=== PATIENT | female | born 1960 | race Caucasian/White ===

== ENCOUNTER 2016-08-28 09:05 | Emergency (ER) | payer OTHER ==
[~2016-08-28 09:05] MED LIST: ABILIFY 5MG5 MG PO; ABILIFY10 M1 PO; AUGMENTIN 875 M1 TAB PO; BUPROPION HCL100 M2 PO; BUTALB-ACETAMI1 EACH PO; CHLORDIAZEPOXID25 M3 PO; DOCUSATE SODIU100 MG PO; DULCOLAX10 MG PR; ESTRADIOL1 M1 PO; FIORICET 50-301 EACH PO; FLUOCINONIDE15 G2 TOP; FLUOXETINE HCL20 M2 PO; FLUOXETINE HYDR20 MG; FLUOXETINE HYDR20 MG PO; FLUOXETINE40 MG PO; FOLIC ACID1 M1 PO; FOLIC ACID1 MG PO; GABAPENTIN300 MG PO; GABAPENTIN600 M1 PO; HYDROXYZINE PAM50 MG; HYDROXYZINE PAM50 MG PO; IBUPROFEN600 MG PO; KEFLEX500 M1 PO; LAMICTAL100 M2 PO; LAMOTRIGINE150 M1 PO; LITHIUM CARBON300 M2; LITHIUM CARBON300 M2 PO; MEDROL4 M2 PO; MIRALAX17 GM PO; MIRTAZAPINE15 MG; MIRTAZAPINE15 MG PO; MOBIC15 M1 PO; MULTIVITAMIN1 TAB PO; NALTREXONE HCL50 MG PO; NAPROSYN500 M1 PO; NEXIUM 40MG40 MG PO; NICODERM C21 MG/24 H TOP; NORCO 5-325 TA1 EACH PO; NORTRIPTYLINE H25 M2 PO; OMEPRAZOLE-BIC1 EAC1 PO; PANTOPRAZOLE SO40 M1 PO; PERCOCET 5-3251 EACH PO; SENSIPAR30 MG PO; Senokot S PO; TOPIRAMATE25 MG PO; Theragran Vitamins PO; VESICARE 5MG5 MG PO; VITAMIN B1100 MG PO; VITAMIN D2000 I1 PO; ZOFRAN ODT4 M1 SL; ZOFRAN4 M2 PO; ZOFRAN4 MG PO; ZOVIRAX5 GM TOP; [UNRECOGNIZED DRUG - OTHER] PO
[2016-08-28 09:07] VITALS: BP 124/83
--- NOTE | 2016-08-28 09:15 | ED UPPER/LOWER EXTREMITY COMPL ---
History of Present Illness General Chief Complaint: Hip Injury Stated Complaint: RIGHT HIP PAIN Source: patient, old records Exam Limitations: no limitations Vital Signs & Intake/Output Vital Signs & Intake/Output Vital Signs Date Time Temp Pulse Resp B/P Pulse O2 O2 Flow FiO2 Ox Delivery Rate 08/28 0907 97.8 98 20 124/83 97 Room Air Allergies Coded Allergies: ketorolac (NAUSEA 02/21/16) Reconcile Medications Acyclovir (Zovirax) 5 % CREAM..G. 1 SHANITA TOP PRN COLD SORE (Reported) apply to affected area(s) Aripiprazole (Abilify) 10 MG TABLET 1 TAB PO DAILY MENTAL HEALTH (Reported) Bupropion HCl 100 MG TABLET 1 TAB PO DAILY MENTAL HEALTH (Reported) Butalb/Acetaminophen/Caffeine (Avyire-Hndwfcpr-Kfgh 50-325-40) 50 MG-325 MG-40 MG TABLET 1 TAB PO PRN MIGRAINES (Reported) Estradiol 1 MG TABLET 1 TAB PO DAILY HRT (Reported) Fluocinonide 0.05 % CREAM..G. 1 SHANITA TOP TID VAGINAL AREA (Reported) apply to affected area(s) Folic Acid 1 MG TABLET 1 TAB PO DAILY SUPPLEMENT (Reported) Gabapentin 600 MG TABLET 1 TAB PO BID ANXIETY (Reported) Lamotrigine (Lamictal) 100 MG TABLET 1 TAB PO QPM MENTAL HEALTH (Reported) Lamotrigine 150 MG TABLET 1 TAB PO QAM MENTAL HEALTH (Reported) Multivitamin (Multiple Vitamins) 1 EACH TABLET 1 TAB PO DAILY SUPPLEMENT ( Reported) Naproxen (Naprosyn) 500 MG TABLET 1 TAB PO BID PRN PAIN Nortriptyline HCl 25 MG CAPSULE 1 CAP PO QPM SLEEP (Reported) Omeprazole/Sodium Bicarbonate (Omeprazole-Bicarb 40-1,100 Cap) 1 EACH CAPSULE 1 CAP PO DAILY GI (Reported) Ondansetron (Zofran Odt) 4 MG TAB.RAPDIS 1 TAB SL PRN NAUSEA (Reported) Oxycodone HCl/Acetaminophen (Percocet 5-325 MG Tablet) 5 MG-325 MG TABLET 1 TAB PO TID PRN breakthrough pain Oxycodone HCl/Acetaminophen (Percocet 5-325 MG Tablet) 5 MG-325 MG TABLET 1 TAB PO TID PRN PAIN Pantoprazole Sodium 40 MG TABLET.DR 1 TAB PO DAILY AC GI (Reported) Solifenacin Succinate (Vesicare) 5 MG TABLET 1 TAB PO DAILY BLADDER (Reported ) Triage Note: PT PRESENTS TO ER C/O OF RIGHT HIP PAIN THAT STARTED AFTER SHE MOVED A BIG TREE BRANCH A FEW MONTHS AGO. PT STATE THIS WEEK AFTER WORKING OUT THE HIP PAIN WAS WORSE Triage Nurses Notes Reviewed? yes Onset: Gradual Duration: week(s):, constant Timing: recent history Severity: mild, moderate Severity Numbers: 6 Pain/Injury Location: Right: Hip. Method of Injury: chronic pain pulling tree branch Modifying Factors: Worsens With: other (palpation). Associated Symptoms: none HPI: 55-year-old female presents to emergency room complaining of right lateral hip pain that she states has been intermittent in nature. The past 2 months. She was initially seen in the injury first occurred while pulling tree branches and had an unremarkable x-ray performed. She states the pain resolved and she did not follow-up as was recommended. She states that she was doing exercises yesterday and felt a "pull" in her hip since then she 7 having pain worse with palpation. She's been able to ambulate without any difficulty there is no radiation of the pain no numbness or tingling no back knee or ankle pain. She took a Naprosyn prior to arrival without improvement and she denies any swelling to her leg. There's been no trauma or injury. (HAI LIMA) Past History Travel History Traveled to [place] past 21 day No Medical History Any Pertinent Medical History? 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 Hx Contributory? No (HAI LIMA) Review of Systems Review of Systems Constitutional: Reports: see HPI. All Other Systems: Reviewed and Negative Comments Review of systems: See HPI, All other systems negative. Constitutional, no chills no fever, no malaise HEENT: No visual changes no sore throat no congestion Cardiovascular: No chest pain , no palpitation Skin, no rashes, no change in skin Respiratory: No dyspnea no cough no sputum GI: No nausea no vomiting, no diarrhea, : No dysuria Muscle skeletal: joint pain, no joint swelling, no back pain, no neck pain, Neurologic: No numbness no headache Psych: No stress Heme/endocrine: No bruising no bleeding Immunology: No lymphadenopathy (HAI LIMA) Physical Exam Physical Exam General Appearance: well developed/nourished, alert, awake Comments: Well-developed well-nourished patient in no apparent distress. HEENT: Atraumatic, extraocular motion intact Neck: Supple, FROM Back: FROM Cardiovascular: Regular rate and rhythms no murmurs rubs Respiratory: No respiratory distress. Patient speaking in full complete sentences. Breath sounds clear to auscultation bilaterally: NO W/R/R Upper Extremities: full range of motion Hip/Pelvis: Tenderness to palpation over the lateral aspect of the right hip, there is no ecchymosis or signs of trauma, pain is reproducible with palpation and attempted flexion of the hip, Atraumatic/Stable. FROM. No pain with pelvic compression Knee: Atraumatic/stable. FROM. No joint swelling, no effusion. No laxity. No pain with ROM Leg: Atraumatic. Nontender. No edema, 5 out of 5 strength in the lower extremity, normal dorsiflexion of great toe bilaterally, gross sensation is intact Ankle/Foot: Atraumatic/stable. Skin intact. FROM. No swelling, no effusion. No laxity on exam Pulses: Normal/equal DP/PT pulses bilaterally. Brisk cap refill Neuro: Alert and oriented x3 Skin: Warm & dry;No appreciable rash on exposed skin Psych: Mood affect normal, normal memory normal judgment. (HAI LIMA) Progress Differential Diagnosis: contusion, dislocation, DVT, fracture Plan of Care: Old records including patient's previous x-ray were reviewed. She did not follow-up as was recommended with orthopedist which I advised again today. Advise rest ice she may need physical therapy. Prescription for Percocet provided for pain IMPRESSION: Mild degenerative changes of the right hip joint, without evidence of acute fracture or dislocation. DICTATED BY: SANDRINE TRAN MD DATE/TIME DICTATED:07/11/161813 INFORMATION TECHNOLOGY COORDINATOR:ROSA DATE/TIME TRANSCRIBED:07/11/161813 (HAI LIMA) Departure Departure Time of Disposition: 922 Disposition: HOME OR SELF CARE Condition: Stable Clinical Impression Primary Impression: Hip sprain Secondary Impressions: Arthritis Referrals: YARA ARAUJO,FAYE (PCP/Family) ANA PAULA ARAUJO,ANDREW Loza Additional Instructions: Rest, ice, follow-up with orthopedist Dr. nnia as well as her primary care physician. Continue taking Tylenol or Motrin during the day every 4-6 hours. Percocet for breakthrough pain is caution as this will make you drowsy, no driving or drinking alcohol while taking this prescription was sent to the [facility] Departure Forms: Customer Survey General Discharge Information Prescriptions: Current Visit Scripts Oxycodone HCl/Acetaminophen (Percocet 5-325 MG Tablet) 1 TAB PO TID PRN breakthrough pain #10 TAB (HAI LIMA) PA/CUSTOMER OPERATIONS INTERN Co-Sign Statement Statement: ED Attending supervision documentation- [] I saw and evaluated the patient. I have also reviewed all the pertinent lab results and diagnostic results. I agree with the findings and the plan of care as documented in the PA's/CUSTOMER OPERATIONS INTERN's documentation. [x] I have reviewed the ED Record and agree with the PA's/CUSTOMER OPERATIONS INTERN's documentation. [] Additions or exceptions (if any) to the PAs/CUSTOMER OPERATIONS INTERN's note and plan are summarized below: [] (HUANG ARAUJO,CUAUHTEMOC)
[2016-08-28] MEDS ORDERED: PERCOCET 5-3251 EACH PO (09:24)
== END 2016-08-28 09:50 ==
LOC: ERH 09:05
DX: S73.101A Unspecified sprain of right hip, initial encounter (principal); M16.11 Unilateral primary osteoarthritis, right hip; X58.XXXA Exposure to other specified factors, initial encounter

== ENCOUNTER 2016-09-03 15:35 | Emergency (ER) | payer OTHER ==
--- NOTE | 2016-09-03 16:11 | ED PSYCHIATRIC COMPLAINT ---
History of Present Illness General Chief Complaint: ETOH/Drug Related Complaint Stated Complaint: BIBA FOR ETOH Source: patient, old records, EMS Exam Limitations: intoxication Vital Signs & Intake/Output Vital Signs & Intake/Output Vital Signs Date Time Temp Pulse Resp B/P Pulse O2 O2 Flow FiO2 Ox Delivery Rate 09/03 2040 98.2 80 16 144/80 98 Room Air Room Air 09/03 2006 88 16 09/03 1545 97.5 107 18 138/79 09/03 1545 98 Room Air 09/03 1541 97.5 107 18 138/79 95 Room Air Allergies Coded Allergies: ketorolac (NAUSEA 02/21/16) Reconcile Medications Acyclovir (Zovirax) 5 % CREAM..G. 1 SHANITA TOP PRN COLD SORE (Reported) apply to affected area(s) Aripiprazole (Abilify) 10 MG TABLET 1 TAB PO DAILY MENTAL HEALTH (Reported) Bupropion HCl 100 MG TABLET 1 TAB PO DAILY MENTAL HEALTH (Reported) Butalb/Acetaminophen/Caffeine (Pazkwu-Zynuxkqm-Nlix 50-325-40) 50 MG-325 MG-40 MG TABLET 1 TAB PO PRN MIGRAINES (Reported) Estradiol 1 MG TABLET 1 TAB PO DAILY HRT (Reported) Folic Acid 1 MG TABLET 1 TAB PO DAILY SUPPLEMENT (Reported) Gabapentin 600 MG TABLET 1 TAB PO BID ANXIETY (Reported) Lamotrigine (Lamictal) 100 MG TABLET 1 TAB PO QPM MENTAL HEALTH (Reported) Lamotrigine 150 MG TABLET 1 TAB PO QAM MENTAL HEALTH (Reported) Multivitamin (Multiple Vitamins) 1 EACH TABLET 1 TAB PO DAILY SUPPLEMENT ( Reported) Nortriptyline HCl 25 MG CAPSULE 1 CAP PO QPM SLEEP (Reported) Omeprazole/Sodium Bicarbonate (Omeprazole-Bicarb 40-1,100 Cap) 1 EACH CAPSULE 1 CAP PO DAILY GI (Reported) Ondansetron (Zofran Odt) 4 MG TAB.RAPDIS 1 TAB SL PRN NAUSEA (Reported) Oxycodone HCl/Acetaminophen (Percocet 5-325 MG Tablet) 5 MG-325 MG TABLET 1 TAB PO TID PRN breakthrough pain Pantoprazole Sodium 40 MG TABLET.DR 1 TAB PO DAILY AC GI (Reported) Solifenacin Succinate (Vesicare) 5 MG TABLET 1 TAB PO DAILY BLADDER (Reported ) Triage Note: BIBA ETOH, RECENTLY RELAPSED AND DRANK APPROX 1 LITER VODKA TODAY. ARRIVES SLURRING WORDS, NAUSEOUS. CALM AND COOPERATIVE. DENIES SI/HI/ PA LUBERTI TO BEDSIDE ON ARRIVAL AND SECURITY AWARE OF NEED FOR WANDING AND CHANGING Triage Nurses Notes Reviewed? yes HPI: 55-year-old female brought in by ambulance after her mother called with complaints of being intoxicated. She is formerly an alcoholic, had a relapse today, drinking a liter of vodka, feeling nauseous, vomited once. She is requesting help with stopping drinking. She has no other complaints, she is heavily intoxicated. She denies any trauma. She denies any drug use, she has history of alcohol abuse and states she has been sober for several months. There is no depression sign or HI. She has history of bipolar Past History Travel History Traveled to [place] past 21 day No Medical History Any Pertinent Medical History? 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 Hx Contributory? No Review of Systems Review of Systems Constitutional: Reports: see HPI. EENTM: Reports: no symptoms. Respiratory: Reports: no symptoms. Cardiovascular: Reports: no symptoms. GI: Reports: no symptoms. Genitourinary: Reports: no symptoms. Musculoskeletal: Reports: no symptoms. Skin: Reports: no symptoms. Neurological/Psychological: Reports: see HPI. Hematologic/Endocrine: Reports: no symptoms. Immunologic/Allergic: Reports: no symptoms. All Other Systems: Reviewed and Negative Physical Exam Physical Exam General Appearance: well developed/nourished, no apparent distress Head: atraumatic Eyes: Bilateral: PERRL, EOMI (with nystagmus). Ears, Nose, Throat: normal pharynx, normal ENT inspection, hearing grossly normal Neck: normal inspection, supple Respiratory: normal breath sounds Cardiovascular: regular rate/rhythm Gastrointestinal: soft, non-tender Extremities: normal range of motion Neurological/Psychiatric: no motor/sensory deficits, awake, alert, normal mood/ affect, intoxicated, slurring her words Appearance/Memory/Insight: disheveled Behavoir/Eye Contact/Speech: cooperative Thoughts/Hallucinations: normal thought pattern, no apparent hallucination Skin: intact, normal color, warm/dry SAD PERSONS Done? patient not suicidal Progress Differential Diagnosis: dementia, drug intoxication, drug overdose, drug withdrawal, electrolyte abnormality, encephalitis, hypoglycemia, hypothyroidism, IC hem/mass/tumor, meningitis Plan of Care: Orders Procedure Date/time Status CIWA 09/03 154 Active URINE DRUG SCREEN FOR ER ONLY 09/03 154 Complete ETHANOL 09/03 1545 Complete COMPREHENSIVE METABOLIC PANEL 09/03 1545 Complete CBC WITHOUT DIFFERENTIAL 09/03 1545 Complete Laboratory Tests 09/03/16 1902: Urine Opiates Screen < 100.00, Methadone Screen 42, Barbiturate Screen < 60, Ur Phencyclidine Scrn < 6.00, Amphetamines Screen < 100, U Benzodiazepines Scrn < 85, Urine Cocaine Screen < 50, Urine Cannabis Screen < 5.00 09/03/16 1602: Anion Gap 17 H, Estimated GFR > 60, BUN/Creatinine Ratio 17.1, Glucose 100 H, Calcium 9.1, Total Bilirubin 0.4, AST 27, ALT 29, Alkaline Phosphatase 90, Total Protein 7.6, Albumin 4.5, Globulin 3.1, Albumin/Globulin Ratio 1.5, CBC w Diff NO MAN DIFF REQ, RBC 4.94, MCV 83.7, MCH 27.6, RDW 14.1, MPV 8.3, Gran % 69.2, Lymphocytes % 24.1, Monocytes % 4.5, Eosinophils % 1.5, Basophils % 0.7, Absolute Granulocytes 6.0, Absolute Lymphocytes 2.1, Absolute Monocytes 0.4, Absolute Eosinophils 0.1, Absolute Basophils 0.1, PUBS MCHC 33.0, Serum Alcohol 199.0 Comments: 09/03/2016 4:17:06 PM patient increasingly agitated, attempts unsafe ambulation, attempts unsafe discharge from the emergency department AGAINST MEDICAL ADVICE, she is not clinically sober and is a danger to herself because of her alcohol intoxication. For her own safety she was medicated with 2 g of IM Ativan, 50 mg of Benadryl IM and 5 mg Haldol IM in attempt to calm her. We'll continue to monitor her status. Patient was reevaluated, she is awake and alert and clinically sober, monitored for 5 hours, she is stable for discharge home, she does not want alcohol detox. Departure Departure Disposition: HOME OR SELF CARE Condition: Stable Clinical Impression Primary Impression: Alcohol intoxication Qualifiers: Complication of substance-induced condition: uncomplicated Qualified Code: F10.120 - Alcohol abuse with intoxication, uncomplicated Referrals: FAYE LIVINGSTON MD (PCP/Family) Additional Instructions: follow-up with her primary care doctor with any concerns. Contact the outpatient services provided for counseling for alcohol abuse if you feel as though you need help abstaining from alcohol Departure Forms: Customer Survey General Discharge Information
[2016-09-03 16:14] LABS: ABSOLUTE BASOPHIL COUNT 0.1 /CUMM (0.0-0.2); ABSOLUTE EOSINOPHIL COUNT 0.1 /CUMM (0.0-0.7); ABSOLUTE LYMPH COUNT 2.1 /CUMM (1.2-3.4); ABSOLUTE MONOCYTE COUNT 0.4 /CUMM (0.10-0.60); BASOPHIL % 0.7 % (0.0-2.0); EOSINOPHIL % 1.5 % (0-5); GRANULOCYTE % 69.2 % (42.2-75.2); HEMATOCRIT 41.4 % (37-47); MEAN CORPUSCULAR HGB 27.6 PG (27.0-31.0); MEAN CORPUSCULAR VOLUME 83.7 FL (81.0-99.0); MEAN PLATELET VOLUME 8.3 FL (7.4-10.4); PLATELET COUNT 280 /CUMM (130-400); RBC DISTRIBUTION WIDTH 14.1 % (11.5-14.5); RED BLOOD CELL CT 4.94 /CUMM (4.20-5.40); WHITE BLOOD CELL COUNT 8.6 /CUMM (4.8-10.8)
[2016-09-03 20:41] VITALS: BP 144/80
== END 2016-09-03 20:43 ==
LOC: ERH 15:35
PROVIDERS: Physician Assistant Surgical
DX: F10.129 Alcohol abuse with intoxication, unspecified (principal)
CPT/HCPCS: 80307; 96372; G0480; J1200; J1630

== ENCOUNTER 2016-09-26 12:24 | Emergency (ER) | payer OTHER ==
[~2016-09-26] VITALS: Ht 170.2 cm; Wt 77.6 kg
--- NOTE | 2016-09-26 13:30 | RADIOLOGY REPORT ---
EXAMINATION: XR HIP, RIGHT CLINICAL INFORMATION: Pain. COMPARISON: 07/11/2016. TECHNIQUE: Two views of the right hip. FINDINGS: Bone mineral density is maintained without evidence of fracture or dislocation. There is a small nonspecific sclerotic lesion identified in the intertrochanteric region of the right proximal femur with wide zone of transition which appears entirely unchanged compared with the previous examination, although only a short interval. There is mild joint space narrowing in the right hip with mild degenerative changes in the right sacroiliac joint and pubic symphysis. IMPRESSION: Mild joint space narrowing, no productive or erosive changes. Nonspecific stable appearing sclerotic lesion in the proximal femur. Given the persistent pain, bone scan or MRI should be considered to further evaluate on an outpatient basis.
--- NOTE | 2016-09-26 14:54 | ED UPPER/LOWER EXTREMITY COMPL ---
History of Present Illness General Chief Complaint: Hip Injury Stated Complaint: R HIP PAIN AFTER FALL THIS AM Source: patient Exam Limitations: no limitations Vital Signs & Intake/Output Vital Signs & Intake/Output Vital Signs Date Time Temp Pulse Resp B/P Pulse O2 O2 Flow FiO2 Ox Delivery Rate 09/26 1247 96.8 102 18 133/90 98 Room Air Allergies Coded Allergies: ketorolac (NAUSEA 02/21/16) Reconcile Medications Acyclovir (Zovirax) 5 % CREAM..G. 1 SHANITA TOP PRN COLD SORE (Reported) apply to affected area(s) Aripiprazole (Abilify) 10 MG TABLET 1 TAB PO DAILY MENTAL HEALTH (Reported) Bupropion HCl 100 MG TABLET 1 TAB PO DAILY MENTAL HEALTH (Reported) Butalb/Acetaminophen/Caffeine (Zvhlmh-Bhilzgxe-Cddq 50-325-40) 50 MG-325 MG-40 MG TABLET 1 TAB PO PRN MIGRAINES (Reported) Estradiol 1 MG TABLET 1 TAB PO DAILY HRT (Reported) Folic Acid 1 MG TABLET 1 TAB PO DAILY SUPPLEMENT (Reported) Gabapentin 600 MG TABLET 1 TAB PO BID ANXIETY (Reported) Lamotrigine (Lamictal) 100 MG TABLET 1 TAB PO QPM MENTAL HEALTH (Reported) Lamotrigine 150 MG TABLET 1 TAB PO QAM MENTAL HEALTH (Reported) Multivitamin (Multiple Vitamins) 1 EACH TABLET 1 TAB PO DAILY SUPPLEMENT ( Reported) Nortriptyline HCl 25 MG CAPSULE 1 CAP PO QPM SLEEP (Reported) Omeprazole/Sodium Bicarbonate (Omeprazole-Bicarb 40-1,100 Cap) 1 EACH CAPSULE 1 CAP PO DAILY GI (Reported) Ondansetron (Zofran Odt) 4 MG TAB.RAPDIS 1 TAB SL PRN NAUSEA (Reported) Oxycodone HCl/Acetaminophen (Percocet 5-325 MG Tablet) 5 MG-325 MG TABLET 1 TAB PO TID PRN breakthrough pain Pantoprazole Sodium 40 MG TABLET.DR 1 TAB PO DAILY AC GI (Reported) Solifenacin Succinate (Vesicare) 5 MG TABLET 1 TAB PO DAILY BLADDER (Reported ) Triage Note: 55 Y/O FEMALE C/O R HIP PAIN S/P FALL WHILE MOPPING THIS MORNING. STATES SHE HAS ARTHRITIS IN THE SAME HIP AND JUST WANTS TO GET IT CHECKED. TOOK NAPROSYN WITH LITTLE RELIEF. AMBULATORY WITH STEADY GAIT INTO AND OUT OF TRIAGE. Triage Nurses Notes Reviewed? yes HPI: Patient presents for evaluation of injuries sustained status post fall. Patient states that she fell on the wet floor while mopping at her house at about 6:00 this morning. She landed on the right side of her right hip and has had a moderate to severe aching charley horse pain since. The pain gets worse with palpation and movement. There has been no associated bruising or soft tissue swelling. She does get occasional radiation of pain into the right lower extremity. She denies head strike or loss of consciousness neck or back pain. Past History Travel History Traveled to [place] past 21 day No Medical History Any Pertinent Medical History? 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 Hx Contributory? No Review of Systems Review of Systems Constitutional: Reports: no symptoms. EENTM: Reports: no symptoms. Respiratory: Reports: no symptoms. Cardiovascular: Reports: no symptoms. Gastrointestinal/Abdominal: Reports: no symptoms. Genitourinary: Reports: no symptoms. Musculoskeletal: Reports: see HPI. Skin: Reports: no symptoms. Neurological/Psychological: Reports: no symptoms. Hematologic/Endocrine: Reports: no symptoms. Immunological: Reports: no symptoms. All Other Systems: Reviewed and Negative Physical Exam Physical Exam General Appearance: see below Comments: Gen.: Well-nourished, well-developed, no acute respiratory distress. Head: Normocephalic, atraumatic, nontender. Eyes: Normal inspection bilaterally, verena, EOMI Ears: Normal inspection bilaterally Nose: Normal inspection Throat/mouth : Moist mucosa Neck: Supple, full range of motion, no goiter, nontender Heart: Regular rate and rhythm, no murmurs rubs or gallops Lungs: Clear to auscultation bilaterally with normal air entry Chest: Nontender Back: Normal range of motion, nontender Abdomen: Soft, nontender, nondistended, normal bowel sounds Pelvis: Stable and nontender Extremities: Normal range of motion grossly, tenderness over the proximal extent of the quadriceps with no associated soft tissue swelling or ecchymoses, no cyanosis clubbing or edema, the right lower extremity is neurovascularly intact distally. Neurologic: Cranial nerves grossly intact, speech is clear Skin: warm and dry and without ecchymoses or soft tissue swelling or erythema Psychiatric: Calm, cooperative, no apparent delusions or hallucinations Progress Differential Diagnosis: contusion, dislocation, fracture, sprain Plan of Care: nsaid, narcotic prn, f/u Diagnostic Imaging: Discussed w/RAD: Radiology Read. Radiology Impression: PATIENT: DALLAS VASQUEZ PRESENT AGE: 55 PATIENT ACCOUNT NO: [id number] : 60 LOCATION: [facility] ORDERING PHYSICIAN: KEO MONGE MD SERVICE DATE: 09/26/16 EXAM TYPE: RAD - XRY-HIP 2-3 VIEWS, RIGHT EXAMINATION: XR HIP, RIGHT CLINICAL INFORMATION: Pain. COMPARISON: 07/11/2016. TECHNIQUE: Two views of the right hip. FINDINGS: Bone mineral density is maintained without evidence of fracture or dislocation. There is a small nonspecific sclerotic lesion identified in the intertrochanteric region of the right proximal femur with wide zone of transition which appears entirely unchanged compared with the previous examination, although only a short interval. There is mild joint space narrowing in the right hip with mild degenerative changes in the right sacroiliac joint and pubic symphysis. IMPRESSION: Mild joint space narrowing, no productive or erosive changes. Nonspecific stable appearing sclerotic lesion in the proximal femur. Given the persistent pain, bone scan or MRI should be considered to further evaluate on an outpatient basis. DICTATED BY: RANDY PETE MD DATE/TIME DICTATED:09/26/161320 CHIEF SCIENTIFIC OFFICER:ROSA DATE/TIME TRANSCRIBED:09/26/161320 CONFIDENTIAL, DO NOT COPY WITHOUT APPROPRIATE AUTHORIZATION. <Electronically signed in Other Vendor System> SIGNED BY: RANDY PETE MD 09/26/16 1330 Departure Departure Disposition: HOME OR SELF CARE Condition: Stable Clinical Impression Primary Impression: Contusion of right thigh Qualifiers: Encounter type: initial encounter Qualified Code: S70.11XA - Contusion of right thigh, initial encounter Secondary Impressions: Fall Qualifiers: Encounter type: initial encounter Qualified Code: W19.XXXA - Unspecified fall, initial encounter Referrals: FAYE LIVINGSTON MD (PCP/Family) Additional Instructions: Discontinue the Naprosyn and begin Voltaren as prescribed. If necessary add Vicodin for pain. Ice to any areas of swelling over the next 24 hours. No exertion or any other painful activities. Follow-up with your primary care doctor next week. Return if any concerns or sudden worsening. Please note that there might be incidental findings in your evaluation that are unrelated to the current emergency department visit. Please notify your primary care doctor about this emergency department visit in order to obtain and review all of the testing performed so that these incidental findings can be monitored as needed. If you had an x-ray performed, please understand that some fractures may not be seen on the initial set of x-rays. If your symptoms persist you might need a repeat set of x-rays to check for such a fracture. If you had a laceration evaluated, please understand that foreign bodies such as glass or wood may not be visible to the naked eye or on plain x-rays. If the wound becomes red, swollen, increasingly more painful or if there is any drainage from the wound, please have it reevaluated by a physician for the possibility of a retained foreign body. Thank you for choosing the [facility] Emergency Department for your care. It was a pleasure to serve you today. Keo Monge M.D. [facility] Departure Forms: Customer Survey General Discharge Information Prescriptions: Current Visit Scripts Diclofenac Sodium 1 TAB PO BID PRN PAIN #14 TAB Hydrocodone/Acetaminophen ([place] 5-325 Tablet) 1 TAB PO Q6P PRN PAIN #10 TAB
[2016-09-26] MEDS ORDERED: DICLOFENAC SODI75 M2 PO (15:16)
[2016-09-26] MEDS ORDERED: NORCO 5-325 TA1 EACH PO (15:16)
[2016-09-26 15:17] VITALS: BP 142/91
== END 2016-09-26 15:32 ==
LOC: ERH 12:24
DX: S70.11XA Contusion of right thigh, initial encounter (principal); W01.0XXA Fall on same level from slipping, tripping and stumbling without subsequent striking against object, initial encounter; Y93.E5 Activity, floor mopping and cleaning
CPT/HCPCS: 73502-RT

== ENCOUNTER 2016-11-13 10:05 | Emergency (ER) | payer OTHER ==
[~2016-11-13] VITALS: Ht 162.6 cm; Wt 65.8 kg
[~2016-11-13 10:05] MED LIST changes: +DICLOFENAC SODI75 M2 PO
--- NOTE | 2016-11-13 10:47 | ED PSYCHIATRIC COMPLAINT ---
History of Present Illness General Chief Complaint: ETOH/Drug Related Complaint Stated Complaint: ETOH Source: patient, old records, EMS Exam Limitations: intoxication Vital Signs & Intake/Output Vital Signs & Intake/Output Vital Signs Date Time Temp Pulse Resp B/P Pulse O2 O2 Flow FiO2 Ox Delivery Rate 11/13 2020 97.5 90 18 125/63 11/13 2020 97.5 90 18 125/63 96 11/13 1706 97.3 97 18 133/89 11/13 1706 97.3 97 18 133/89 96 11/13 1337 98.6 76 18 100/56 11/13 1337 98.6 76 18 100/56 98 Room Air 11/13 1231 76 18 100/55 98 Room Air 11/13 1119 98.6 76 18 101/56 98 Room Air 11/13 1025 96.6 92 18 126/78 95 Room Air ED Intake and Output 11/14 0000 11/13 1200 Intake Total Output Total 200 Balance -200 Output, Urine 200 Patient 145 lb Weight Allergies Coded Allergies: ketorolac (NAUSEA 02/21/16) Reconcile Medications Acyclovir (Zovirax) 5 % CREAM..G. 1 SHANITA TOP PRN COLD SORE (Reported) apply to affected area(s) Aripiprazole (Abilify) 10 MG TABLET 1 TAB PO DAILY MENTAL HEALTH (Reported) Bupropion HCl 100 MG TABLET 1 TAB PO DAILY MENTAL HEALTH (Reported) Butalb/Acetaminophen/Caffeine (Dweomm-Fzdlolgd-Vsna 50-325-40) 50 MG-325 MG-40 MG TABLET 1 TAB PO PRN MIGRAINES (Reported) Diclofenac Sodium 75 MG TABLET.DR 1 TAB PO BID PRN PAIN Estradiol 1 MG TABLET 1 TAB PO DAILY HRT (Reported) Folic Acid 1 MG TABLET 1 TAB PO DAILY SUPPLEMENT (Reported) Gabapentin 600 MG TABLET 1 TAB PO BID ANXIETY (Reported) Hydrocodone/Acetaminophen ([place] 5-325 Tablet) 5 MG-325 MG TABLET 1 TAB PO Q6P PRN PAIN Lamotrigine (Lamictal) 100 MG TABLET 1 TAB PO QPM MENTAL HEALTH (Reported) Lamotrigine 150 MG TABLET 1 TAB PO QAM MENTAL HEALTH (Reported) Multivitamin (Multiple Vitamins) 1 EACH TABLET 1 TAB PO DAILY SUPPLEMENT ( Reported) Nortriptyline HCl 25 MG CAPSULE 1 CAP PO QPM SLEEP (Reported) Omeprazole/Sodium Bicarbonate (Omeprazole-Bicarb 40-1,100 Cap) 1 EACH CAPSULE 1 CAP PO DAILY GI (Reported) Ondansetron (Zofran Odt) 4 MG TAB.RAPDIS 1 TAB SL PRN NAUSEA (Reported) Oxycodone HCl/Acetaminophen (Percocet 5-325 MG Tablet) 5 MG-325 MG TABLET 1 TAB PO TID PRN breakthrough pain Pantoprazole Sodium 40 MG TABLET.DR 1 TAB PO DAILY AC GI (Reported) Solifenacin Succinate (Vesicare) 5 MG TABLET 1 TAB PO DAILY BLADDER (Reported ) Triage Note: 55 YO FEMALE RAMANA FROM HOME. PER EMS PT CALLED THE AMBULANCE ON HER OWN AND ASKED THEM TO TAKE HER TO [place]. PT ARRIVES UNREPSONSIVE, SMELL OF ALCOHOL NOTED. PER EMS, PT STATES SHE DRANK "ALOT OF VODKA" THIS AM. PT MOVING AROUND ON STRETCHER BUT NOT ANSWERING QUESTIONS. PT TO ER ROOM 7, WANDED BY SECUIRTY AND CHANGED INTO HOSP SCRUBS. PT HAS 2 BAGS IN CLOSET AND NO VLAUBLES. PT STRAIGHT CATH'D FOR URINE, OUTPUT 200CC CLEAR URINE. IV EST. BY CARLOS ZIMMERMAN #18 TO R HAND. Triage Nurses Notes Reviewed? yes Onset: Just prior to arrival Duration: minute(s):, constant, continues in ED Timing: recent history Severity: severe Associated Symptoms: impaired concentration LMP (ages 10-50): post menopausal : No Patient currently breastfeeds: No HPI: Several hours prior to admission patient was cleaning and found a bottle of vodka that she drank. She reports she has been free of alcohol for several months requests detox with history of withdrawal seizures. She denies fever chills chest pain cough shortness of breath headache dysuria rash bleeding abdominal pain. (ROMAN ARAUJO,EMELY) Past History Travel History Traveled to [place] past 21 day No Medical History Any Pertinent Medical History? see below for history Neurological: NONE Cardiovascular: MITRAL VALVE PROLAPSE Respiratory: asthma Gastrointestinal: NONE Hepatic: NONE Renal: NONE Musculoskeletal: NONE Psychiatric: alcohol dependence, bipolar disease, OCD Endocrine: LITHIUM INDUCED HYPERCALCEMIA Blood Disorders: NONE Cancer(s): NONE IT INTERN/Reproductive: miscarriage History of MRSA: No History of VRE: No History of CDIFF: No Surgical History Surgical History: hysterectomy (Hysterectomy in distant past) Psychosocial History Who do you live with Mother Services at Home None What is your primary language Serbian Tobacco Use: UN Family History Family History, If Any: MOTHER FH: hypertension FATHER FH: heart attack, Onset: 30-40. Hx Contributory? No (EMELY OWENS MD) Review of Systems Review of Systems Constitutional: Reports: see HPI, weakness. EENTM: Reports: no symptoms. Respiratory: Reports: no symptoms. Cardiovascular: Reports: no symptoms. GI: Reports: see HPI, nausea, vomiting. Genitourinary: Reports: no symptoms. Musculoskeletal: Reports: no symptoms. Skin: Reports: no symptoms. Neurological/Psychological: Reports: see HPI, confusion. Hematologic/Endocrine: Reports: no symptoms. Immunologic/Allergic: Reports: no symptoms. All Other Systems: Reviewed and Negative (EMELY OWENS MD) Physical Exam Physical Exam General Appearance: well developed/nourished, mild distress Head: atraumatic Eyes: Bilateral: PERRL, EOMI. Ears, Nose, Throat: normal pharynx, normal ENT inspection, hearing grossly normal Neck: normal inspection, supple Respiratory: normal breath sounds Cardiovascular: regular rate/rhythm Gastrointestinal: soft, non-tender Extremities: normal range of motion Neurological/Psychiatric: awake, agitated, alert, anxious, compliance engineer products II-XII nml as tested, disoriented x 3 Appearance/Memory/Insight: disheveled, impaired insight Behavoir/Eye Contact/Speech: uncooperative, slurred speech Thoughts/Hallucinations: no apparent hallucination Skin: intact, normal color, warm/dry SAD PERSONS Done? patient not suicidal (EMELY OWENS MD) Progress Differential Diagnosis: drug intoxication, drug overdose, drug withdrawal, electrolyte abnormality, hypoglycemia Plan of Care: Orders Procedure Date/time Status Regular Diet 11/13 L Active CIWA 11/13 1434 Active Patient Safety Monitor 11/13 1013 Active URINE DRUG SCREEN FOR ER ONLY 11/13 1013 Complete ETHANOL 11/13 1013 Complete COMPREHENSIVE METABOLIC PANEL 11/13 1013 Complete CBC WITHOUT DIFFERENTIAL 11/13 1013 Complete Laboratory Tests 11/13/16 1033: Serum Alcohol 264.0 11/13/16 1033: Anion Gap 10, Estimated GFR > 60, BUN/Creatinine Ratio 15.7, Glucose 99, Calcium 8.8, Total Bilirubin 0.4, AST 28, ALT 42, Alkaline Phosphatase 82, Total Protein 7.0, Albumin 4.3, Globulin 2.7, Albumin/Globulin Ratio 1.6, CBC w Diff NO MAN DIFF REQ, RBC 4.74, MCV 84.3, MCH 27.8, RDW 14.4, MPV 7.8, Gran % 49.7, Lymphocytes % 39.1, Monocytes % 6.7, Eosinophils % 3.7, Basophils % 0.8, Absolute Granulocytes 3.6, Absolute Lymphocytes 2.9, Absolute Monocytes 0.5, Absolute Eosinophils 0.3, Absolute Basophils 0.1, PUBS MCHC 32.9 L, Urine Opiates Screen < 100.00, Methadone Screen 42, Barbiturate Screen < 60, Ur Phencyclidine Scrn < 6.00, Amphetamines Screen 128, U Benzodiazepines Scrn < 85, Urine Cocaine Screen < 50, Urine Cannabis Screen < 5.00 3:10 pm patient signed out to me. Requesting detox. Will monitor CIWA scores. (CUAUHTEMOC ENCINAS MD) Hand-Off Endorsed To: CUAUHTEMOC ENCINAS MD Endorsed Time: 1500 Pending: other (sobriety and CIWA) (EMELY OWENS MD) Hand-Off Endorsed To: SOCORRO WEBB MD Endorsed Time: 2301 Pending: other (ciwa, CASE MANAGEMENT) (CUAUHTEMOC ENCINAS MD) Comments: PT IS AWAKE ALERT AND ORIENTED. SHE NO LONGER WANTS DETOX. SHE DENIES SI/HI. (SOCORRO WEBB MD) Departure Departure Condition: Stable Clinical Impression Primary Impression: Alcohol intoxication delirium Secondary Impressions: Nausea and vomiting in adult Referrals: FAYE LIVINGSTON MD (PCP/Family) Departure Forms: Customer Survey General Discharge Information (EMELY OWENS MD) Departure Additional Instructions: Follow-up with the list of outpatient detox facilities provided. Return to the ER for any changing or worsening symptoms. (CUAUHTEMOC ENCINAS MD) Departure Disposition: HOME OR SELF CARE (SOCORRO WEBB MD)
[2016-11-13 10:48] LABS: ABSOLUTE BASOPHIL COUNT 0.1 /CUMM (0.0-0.2); ABSOLUTE EOSINOPHIL COUNT 0.3 /CUMM (0.0-0.7); ABSOLUTE GRANULOCYTE CT 3.6 /CUMM (1.4-6.5); ABSOLUTE LYMPH COUNT 2.9 /CUMM (1.2-3.4); ABSOLUTE MONOCYTE COUNT 0.5 /CUMM (0.10-0.60); BASOPHIL % 0.8 % (0.0-2.0); EOSINOPHIL % 3.7 % (0-5); GRANULOCYTE % 49.7 % (42.2-75.2); HEMATOCRIT 39.9 % (37-47); MEAN CORPUSCULAR HGB 27.8 PG (27.0-31.0); MEAN CORPUSCULAR HGB CONC 32.9 G/DL (33.0-37.0); MEAN CORPUSCULAR VOLUME 84.3 FL (81.0-99.0); MEAN PLATELET VOLUME 7.8 FL (7.4-10.4); PLATELET COUNT 282 /CUMM (130-400); RBC DISTRIBUTION WIDTH 14.4 % (11.5-14.5); RED BLOOD CELL CT 4.74 /CUMM (4.20-5.40); WHITE BLOOD CELL COUNT 7.3 /CUMM (4.8-10.8)
[2016-11-14 05:37] VITALS: BP 130/70
== END 2016-11-14 05:42 ==
LOC: ERH 10:05
PROVIDERS: Emergency Medicine
DX: F10.121 Alcohol abuse with intoxication delirium (principal); R11.2 Nausea with vomiting, unspecified
CPT/HCPCS: 80307; 96374; G0480; J2405; J3101

== ENCOUNTER 2016-11-25 06:54 | Emergency (ER) | payer OTHER ==
[~2016-11-25] VITALS: Ht 171.4 cm; Wt 76.2 kg
--- NOTE | 2016-11-25 07:15 | ED GENERAL ADULT ---
History of Present Illness General Chief Complaint: Headache Stated Complaint: "I HAVE A HEADACHE" Source: patient Exam Limitations: no limitations Vital Signs & Intake/Output Vital Signs & Intake/Output Vital Signs Date Time Temp Pulse Resp B/P Pulse O2 O2 Flow FiO2 Ox Delivery Rate 11/25 1020 98.0 85 20 134/64 98 Room Air 11/25 0849 98.0 88 18 126/88 99 Room Air 11/25 0706 97.9 93 20 122/78 98 Room Air Allergies Coded Allergies: ketorolac (NAUSEA 11/25/16) Reconcile Medications Aripiprazole (Abilify) 10 MG TABLET 1 TAB PO DAILY MENTAL HEALTH (Reported) Bupropion HCl 100 MG TABLET 1 TAB PO DAILY MENTAL HEALTH (Reported) Butalb/Acetaminophen/Caffeine (Ughron-Zhypvubc-Phol 50-325-40) 50 MG-325 MG-40 MG TABLET 1 TAB PO PRN MIGRAINES (Reported) Butalb/Acetaminophen/Caffeine (Fioricet 50-300-40 MG Capsule) 50 MG-300 MG-40 MG CAPSULE 2 TAB PO Q6 PRN PAIN Cholecalciferol (Vitamin D3) (Vitamin D) 1,000 UNIT TABLET 1 TAB PO DAILY SUPPLEMENT (Reported) Estradiol 1 MG TABLET 1 TAB PO DAILY HRT (Reported) Folic Acid 1 MG TABLET 1 TAB PO DAILY SUPPLEMENT (Reported) Gabapentin 600 MG TABLET 1 TAB PO BID ANXIETY (Reported) Lamotrigine 150 MG TABLET 1 TAB PO BID MENTAL HEALTH (Reported) Multivitamin (Multiple Vitamins) 1 EACH TABLET 1 TAB PO DAILY SUPPLEMENT ( Reported) Nortriptyline HCl 25 MG CAPSULE 1 CAP PO QPM SLEEP (Reported) Omeprazole/Sodium Bicarbonate (Omeprazole-Bicarb 40-1,100 Cap) 1 EACH CAPSULE 1 CAP PO DAILY GI (Reported) Ondansetron (Zofran Odt) 4 MG TAB.RAPDIS 1 TAB SL PRN NAUSEA (Reported) Pantoprazole Sodium 40 MG TABLET.DR 1 TAB PO DAILY GI (Reported) Prednisone 20 MG TABLET 1 TAB PO BID BELLS PALSY Solifenacin Succinate (Vesicare) 5 MG TABLET 1 TAB PO DAILY UNKNOWN (Reported ) Valacyclovir HCl (Valtrex) 1,000 MG TABLET 1 TAB PO BID BELLS PALSY Triage Note: TRIAGE: PT TO ER C/C INTERMITTENT HEADACHE PAIN X 6 MONTHS, CONSTANT X 6 HOURS. STATES EYE IS DROOPY AND IS SEEING FLOATERS SINCE LAST NIGHT AND THIS MORNING. HX OF MIGRAINES. USUALLY TAKES FIORICET BUT DOESN'T HAVE ANY. STATES OTC MEDS DO NOT WORK FOR HER HEADACHES. Triage Nurses Notes Reviewed? yes Onset: Abrupt Duration: hour(s): Timing: recent history HPI: 11/25/16 7:30 AM This is a 55-year-old female with past medical history of migraine headaches and bipolar disorder who presents to the emergency department with a left-sided headache behind the left eye. The onset of symptoms were abrupt, the duration was just this morning, the severity is significant as her symptoms required her to come to the emergency department for care. She has a history of blurry vision in left eye and complains of floaters and some increased blurriness in her vision to the left eye. She denies any chest pain shortness of breath fever or other complaints. Past medical history of migraine headaches and bipolar disorder On physical examination she does have left sided facial weakness. The eye exam is otherwise normal, fundi are normal, extraocular muscles are intact. She has a gag reflex. She does not have any objective weakness. Heart is regular, lungs are clear. Past History Travel History Traveled to [place] past 21 day No Medical History Any Pertinent Medical History? 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 Hx Contributory? No Review of Systems Review of Systems Constitutional: Denies: fever. EENTM: Reports: see HPI. Respiratory: Denies: short of breath. Cardiovascular: Denies: chest pain. GI: Denies: abdominal pain. Genitourinary: Reports: no symptoms. Musculoskeletal: Reports: no symptoms. Skin: Denies: rash. Neurological/Psychological: Reports: headache. Hematologic/Endocrine: Reports: no symptoms. Physical Exam Physical Exam General Appearance: well developed/nourished, alert, awake, anxious, mild distress Head: atraumatic, left facial weakness Eyes: Bilateral: normal appearance, PERRL, EOMI. Ears, Nose, Throat: normal pharynx Neck: normal inspection, supple, full range of motion Respiratory: normal breath sounds, chest non-tender, no respiratory distress Cardiovascular: regular rate/rhythm Peripheral Pulses: 4+ radial (R), 4+ radial (L) Gastrointestinal: non-tender Back: normal inspection Extremities: normal inspection, normal range of motion Neurologic/Psych: awake, alert, oriented x 3, facial droop Skin: intact, normal color, warm/dry Core Measures ACS in differential dx? No CVA/TIA Diagnosis: No Severe Sepsis Present: No Septic Shock Present: No Progress Differential Diagnoses I considered the following diagnoses in my evaluation of the patient: [CVA, TIA, Monge's palsy, migraine headache, multiple sclerosis, temporal arteritis] Plan of Care: Orders Procedure Date/time Status LYME TITRE 11/25 0751 Complete COMPREHENSIVE METABOLIC PANEL 11/25 0751 Complete CBC WITHOUT DIFFERENTIAL 11/25 0751 Complete Laboratory Tests 11/25/16 0800: Anion Gap 9, Estimated GFR > 60, BUN/Creatinine Ratio 24.3, Glucose 99, Calcium 9.3, Total Bilirubin 0.4, AST 20, ALT 32, Alkaline Phosphatase 71, Total Protein 6.7, Albumin 4.0, Globulin 2.7, Albumin/Globulin Ratio 1.5, CBC w Diff NO MAN DIFF REQ, RBC 4.59, MCV 84.5, MCH 28.4, RDW 14.3, MPV 8.1, Gran % 61.3, Lymphocytes % 28.2, Monocytes % 7.2, Eosinophils % 2.8, Basophils % 0.5, Absolute Granulocytes 3.5, Absolute Lymphocytes 1.6, Absolute Monocytes 0.4, Absolute Eosinophils 0.2, Absolute Basophils 0, PUBS MCHC 33.6, Lyme Disease Antibody 0.26 Initial ED EKG: none Departure Departure Disposition: HOME OR SELF CARE Condition: Stable Clinical Impression Primary Impression: Monge's palsy Secondary Impressions: Migraine headache Referrals: FAYE LIVINGSTON MD (PCP/Family) Departure Forms: Customer Survey General Discharge Information Prescriptions: Current Visit Scripts Prednisone 1 TAB PO BID #10 TAB Butalb/Acetaminophen/Caffeine (Fioricet 50-300-40 MG Capsule) 2 TAB PO Q6 PRN PAIN #20 Valacyclovir HCl (Valtrex) 1 TAB PO BID #17 TAB Comments 11/25/16 10:31 AM The patient's symptoms resolved with Fioricet. She has no visual complaints in the emergency department at this time. Her physical exam is significant for left sided facial weakness only. The facial weakness does involve the forehead and the lower lip. She also has complaints related to the eye although I don't appreciate any definite weakness to the eyelid. I suspect she has Monge's palsy. This also may be a vascular migraine. 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 The remainder of her neurological exam is normal. She was treated with Fioricet, prednisone, saline drops, Valtrex, she was instructed to follow-up with her doctor this week and with the medical lab director tomorrow. The patient has no visual complaints in the emergency department. She says the headache actually has been intermittent and ongoing for months. CT scan of the head was negative IMPRESSION: No acute intracranial pathology. DICTATED BY: SASCHA BEACH MD DATE/TIME DICTATED:11/25/16904 ARTIST AND REPERTOIRE MANAGER:ROSA DATE/TIME TRANSCRIBED:11/25/16904 CONFIDENTIAL, DO NOT COPY WITHOUT APPROPRIATE AUTHORIZATION. <Electronically signed in Other Vendor System> SIGNED BY: SASCHA BEACH MD 911 Lyme disease is also a consideration, Lyme titer was sent. I considered TIA and CVA. She has no weakness to the upper or lower extremities. No slurred speech. The symptoms have been intermittent for months. I considered temporal arteritis. She has no temporal artery tenderness. Critical Care Note Critical Care Note Critical Care Time: non-applicable
[2016-11-25] MEDS ORDERED: VITAMIN D1000 UNIT PO (08:05)
[2016-11-25] MEDS ORDERED: VESICARE5 M1 PO (08:06)
[2016-11-25 08:07] LABS: ABSOLUTE BASOPHIL COUNT 0 /CUMM (0.0-0.2); ABSOLUTE EOSINOPHIL COUNT 0.2 /CUMM (0.0-0.7); ABSOLUTE GRANULOCYTE CT 3.5 /CUMM (1.4-6.5); ABSOLUTE LYMPH COUNT 1.6 /CUMM (1.2-3.4); ABSOLUTE MONOCYTE COUNT 0.4 /CUMM (0.10-0.60); BASOPHIL % 0.5 % (0.0-2.0); EOSINOPHIL % 2.8 % (0-5); GRANULOCYTE % 61.3 % (42.2-75.2); HEMATOCRIT 38.8 % (37-47); MEAN CORPUSCULAR HGB 28.4 PG (27.0-31.0); MEAN CORPUSCULAR HGB CONC 33.6 G/DL (33.0-37.0); MEAN CORPUSCULAR VOLUME 84.5 FL (81.0-99.0); MEAN PLATELET VOLUME 8.1 FL (7.4-10.4); PLATELET COUNT 272 /CUMM (130-400); RBC DISTRIBUTION WIDTH 14.3 % (11.5-14.5); RED BLOOD CELL CT 4.59 /CUMM (4.20-5.40); WHITE BLOOD CELL COUNT 5.8 /CUMM (4.8-10.8)
--- NOTE | 2016-11-25 09:12 | CT SCAN REPORT ---
EXAMINATION: CT HEAD WITHOUT CONTRAST CLINICAL INFORMATION: Headache. Left facial weakness. COMPARISON: None TECHNIQUE: Contiguous axial imaging was performed from the skull base to vertex without intravenous administration of contrast. DLP: 600.71 mGy-cm FINDINGS: There is no evidence of acute intracranial hemorrhage or territorial infarction. No abnormal mass effect or midline shift is seen. Valera to white matter differentiation is well preserved. No extra-axial fluid collections are identified. The ventricles are normal in size. There is no abnormal attenuation within the brain parenchyma. The osseous structures and soft tissues are normal. The mastoid air cells and visualized portions of the paranasal sinuses are well aerated. IMPRESSION: No acute intracranial pathology.
[2016-11-25 10:20] VITALS: BP 134/64
[2016-11-25] MEDS ORDERED: FIORICET 50-301 EACH PO (10:50)
[2016-11-25] MEDS ORDERED: PREDNISONE20 M1 PO (10:50)
[2016-11-25] MEDS ORDERED: VALTREX1000 MG PO (10:50)
== END 2016-11-25 11:04 ==
LOC: ERH 06:54
PROVIDERS: Emergency Medicine
DX: G51.0 Bell's palsy (principal); G43.909 Migraine, unspecified, not intractable, without status migrainosus
CPT/HCPCS: 86618

== ENCOUNTER 2016-11-27 16:27 | Emergency (ER) | payer OTHER ==
[~2016-11-27] VITALS: Ht 162.6 cm; Wt 54.4 kg
[~2016-11-27 16:27] MED LIST changes: +PREDNISONE20 M1 PO; +VALTREX1000 MG PO; +VESICARE5 M1 PO; +VITAMIN D1000 UNIT PO
--- NOTE | 2016-11-27 16:54 | ED PSYCHIATRIC COMPLAINT ---
History of Present Illness General Chief Complaint: ETOH/Drug Related Complaint Stated Complaint: BIBA ETOH Source: patient Exam Limitations: clinical condition, intoxication Vital Signs & Intake/Output Vital Signs & Intake/Output Vital Signs Date Time Temp Pulse Resp B/P Pulse O2 O2 Flow FiO2 Ox Delivery Rate 11/28 0636 97.9 89 18 137/65 Room Air 04/06 0515 96.0 82 18 119/59 04/06 0515 96.0 82 18 119/59 98 Room Air 04/06 0310 96.9 80 18 100/54 04/06 0308 80 18 100/54 95 Room Air 04/06 0110 96.9 80 18 103/54 04/06 0110 96.9 80 18 103/54 97 Room Air 04/06 0033 75 16 100/50 96 Room Air 04/05 2153 98.4 79 18 106/57 96 Room Air 04/05 2020 97.0 78 20 96/52 04/05 2000 98.2 78 20 96/52 97 Room Air 04/05 1820 96.5 87 18 104/57 97 Room Air 04/05 1639 96.3 94 18 123/76 100 Room Air 04/05 1638 Room Air Room Air ED Intake and Output 11/28 0000 04/05 1200 Intake Total Output Total Balance Patient 120 lb Weight Allergies Coded Allergies: ketorolac (NAUSEA 11/25/16) Triage Note: PT BIBA FROM HOME. PER EMS PATIENT WAS AT HOME DRINKING, ADMITTED TO DRINKING 2 PINTS OF VODKA TO EMS. HX OF ETOH ABUSE. PER EMS HERE FOR DETOX. PT IS ALERT AND VERBAL ON ARRIVAL. COOPERATED WITH SITTER STAFF AND SECURITY FOR CHANGING AND WANDING PRIOR TO THIS RN MEET. PT HAD VOIDED SMALL AMOUNT OF URINE IN CUP FOR SITTER STAFF. PT STANDING IN HALLWAY OUTSIDE OF HER ROOM. DIRECTED PATIENT BACK TO HER ROOM. PT REFUSES TO ANSWER ANY QUESTIONS ASKED BY THIS RN AND ONLY RESPONDS WITH HER OWN INAPPROPRIATE PERSONAL QUESTIONS AND COMMENTARY DIRECTED TO THIS RN. UNABLE TO OBTAIN ADDITIONAL INFORMATION AT THIS TIME. PT NOTED TO HAVE SWAGGERING GAIT AND SLURRED SPEECH. Triage Nurses Notes Reviewed? yes Onset: Abrupt Duration: day(s): Timing: recent history HPI: 55-year-old female with a history of heavy drinking comes into emergency room requesting alcohol detox. Patient ended up becoming agitated and wanted to leave without a ride. History very limited. Patient was acutely intoxicated. Patient was told that she couldn't leave. Patient ended up being put in 4-point restraints and medicated due agitation. Patient will have to be reevaluated. She denied any pain initially. Patient has been seen here before for detox. Patient had not made any suicidal or homicidal ideations. (DARÍO DUMONT,EMI) Reconcile Medications Aripiprazole (Abilify) 10 MG TABLET 1 TAB PO DAILY MENTAL HEALTH (Reported) Bupropion HCl 100 MG TABLET 1 TAB PO DAILY MENTAL HEALTH (Reported) Cholecalciferol (Vitamin D3) (Vitamin D) 1,000 UNIT TABLET 1 TAB PO DAILY SUPPLEMENT (Reported) Estradiol 1 MG TABLET 1 TAB PO DAILY HRT (Reported) Folic Acid 1 MG TABLET 1 TAB PO DAILY SUPPLEMENT (Reported) Gabapentin 600 MG TABLET 1 TAB PO BID ANXIETY (Reported) Lamotrigine 150 MG TABLET 1 TAB PO BID MENTAL HEALTH (Reported) Multivitamin (Multiple Vitamins) 1 EACH TABLET 1 TAB PO DAILY SUPPLEMENT ( Reported) Nortriptyline HCl 25 MG CAPSULE 1 CAP PO QPM SLEEP (Reported) Omeprazole/Sodium Bicarbonate (Omeprazole-Bicarb 40-1,100 Cap) 1 EACH CAPSULE 1 CAP PO DAILY GI (Reported) Ondansetron (Zofran Odt) 4 MG TAB.RAPDIS 1 TAB SL PRN NAUSEA (Reported) Pantoprazole Sodium 40 MG TABLET.DR 1 TAB PO DAILY GI (Reported) Solifenacin Succinate (Vesicare) 5 MG TABLET 1 TAB PO DAILY UNKNOWN (Reported ) Valacyclovir HCl (Valtrex) 1,000 MG TABLET 1 TAB PO BID BELLS PALSY (IVONNE ARAUJO,CANDACE Mireles) Past History Travel History Traveled to [place] past 21 day No Medical History Any Pertinent Medical History? 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 Hx Contributory? No (EMI RENEE) Review of Systems Review of Systems Constitutional: Reports: no symptoms. EENTM: Reports: no symptoms. Respiratory: Reports: no symptoms. Cardiovascular: Reports: no symptoms. GI: Reports: no symptoms. Genitourinary: Reports: no symptoms. Musculoskeletal: Reports: no symptoms. Skin: Reports: no symptoms. Neurological/Psychological: Reports: see HPI. Hematologic/Endocrine: Reports: no symptoms. Immunologic/Allergic: Reports: no symptoms. All Other Systems: Reviewed and Negative (EMI RENEE) Physical Exam Physical Exam General Appearance: well developed/nourished, mild distress, intoxicated Head: atraumatic Eyes: Bilateral: normal appearance, EOMI. Ears, Nose, Throat: normal ENT inspection, hearing grossly normal Neck: normal inspection Respiratory: no respiratory distress Extremities: normal range of motion Neurological/Psychiatric: awake, agitated, alert Appearance/Memory/Insight: disheveled Behavoir/Eye Contact/Speech: uncooperative Thoughts/Hallucinations: no apparent hallucination Skin: intact, normal color, warm/dry SAD PERSONS Done? patient not suicidal (EMI RENEE) Progress Differential Diagnosis: dementia, drug intoxication, drug overdose, drug withdrawal, electrolyte abnormality, encephalitis, hypoglycemia, hypothyroidism, IC hem/mass/tumor, meningitis Plan of Care: Orders Procedure Date/time Status Regular Diet 11/28 B Active Restraint- Behavioral (Order) 11/27 1718 Active Continuous Observation Monitor 11/27 171 Complete CIWA 11/27 165 Active URINE DRUGS OF ABUSE 11/27 165 Complete ETHANOL 11/27 165 Complete COMPREHENSIVE METABOLIC PANEL 11/28 1651 Complete CBC WITHOUT DIFFERENTIAL 11/28 1651 Complete Laboratory Tests 11/27/16 1821: Urine Opiates Screen < 100.00, Methadone Screen < 40, Barbiturate Screen > 800 H, Ur Phencyclidine Scrn < 6.00, Amphetamines Screen < 100, U Benzodiazepines Scrn < 85, Urine Cocaine Screen < 50, Urine Cannabis Screen < 5.00 11/27/16 1817: Anion Gap 17 H, Estimated GFR > 60, BUN/Creatinine Ratio 15.7, Glucose 82, Calcium 9.1, Total Bilirubin 0.3, AST 28, ALT 33, Alkaline Phosphatase 75, Total Protein 7.0, Albumin 4.2, Globulin 2.8, Albumin/Globulin Ratio 1.5, CBC w Diff NO MAN DIFF REQ, RBC 4.46, MCV 84.7, MCH 27.8, RDW 14.4, MPV 8.3, Gran % 59.2, Lymphocytes % 32.0, Monocytes % 4.5, Eosinophils % 3.7, Basophils % 0.6, Absolute Granulocytes 4.5, Absolute Lymphocytes 2.4, Absolute Monocytes 0.3, Absolute Eosinophils 0.3, Absolute Basophils 0, PUBS MCHC 32.8 L, Serum Alcohol 127.0 6:33 am patient states her mother is coming to the hospital to pick her up. No SI. She was [facility] but states she is going to follow up with her IOP appointment. 11/27/2016 11:50:23 PM Patient signed out to me by Dr. Monge. [facility]. (HUANG ARAUJO,CUAUHTEMOC) Hand-Off Endorsed To: CANDACE LIU DO ([facility]) Endorsed Time: 1858 Pending: consult (crisis), labs (EMI RENEE) Comments: 11/27/2016 8:41:09 PM patient signed out to me by Dr. 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 The patient is requesting alcohol detox. Her current CIWA score reflects medication/sedation given due to agitation. Her initial CIWA score was 11 and she doesn't history of seizures thereby making her candidate for inpatient detox per the [facility] emergency department detox protocol. 11/27/2016 11:13:01 PM patient signed out to Dr. Justice, pre authorization pending for alcohol detox admission. (IVONNE ARAUJO,CANDACE Mireles) Departure Departure Condition: Stable Clinical Impression Primary Impression: ETOH abuse Referrals: FAYE LIVINGSTON MD (PCP/Family) Departure Forms: Customer Survey General Discharge Information (EMI RENEE) PA/MOVE COORDINATOR Co-Sign Statement Statement: ED Attending supervision documentation- [] I saw and evaluated the patient. I have also reviewed all the pertinent lab results and diagnostic results. I agree with the findings and the plan of care as documented in the PA's/MOVE COORDINATOR's documentation. [X] I have reviewed the ED Record and agree with the PA's/MOVE COORDINATOR's documentation. [] Additions or exceptions (if any) to the PAs/MOVE COORDINATOR's note and plan are summarized below: [] 11/27/16 8:29 PM The patient was signed out to Dr. Monge at 8 PM (CANDACE ILU DO) Departure Time of Disposition: 633 Disposition: HOME OR SELF CARE Additional Instructions: Follow up with your IOP appointment. Return as needed. (HUANG ARAUJO,CUAUHTEMOC) (HUANG ARAUJO,CUAUHTEMOC)
[2016-11-27 18:45] LABS: ABSOLUTE BASOPHIL COUNT 0 /CUMM (0.0-0.2); ABSOLUTE EOSINOPHIL COUNT 0.3 /CUMM (0.0-0.7); ABSOLUTE GRANULOCYTE CT 4.5 /CUMM (1.4-6.5); ABSOLUTE LYMPH COUNT 2.4 /CUMM (1.2-3.4); ABSOLUTE MONOCYTE COUNT 0.3 /CUMM (0.10-0.60); BASOPHIL % 0.6 % (0.0-2.0); EOSINOPHIL % 3.7 % (0-5); GRANULOCYTE % 59.2 % (42.2-75.2); HEMATOCRIT 37.8 % (37-47); MEAN CORPUSCULAR HGB 27.8 PG (27.0-31.0); MEAN CORPUSCULAR HGB CONC 32.8 G/DL (33.0-37.0); MEAN CORPUSCULAR VOLUME 84.7 FL (81.0-99.0); MEAN PLATELET VOLUME 8.3 FL (7.4-10.4); PLATELET COUNT 281 /CUMM (130-400); RBC DISTRIBUTION WIDTH 14.4 % (11.5-14.5); RED BLOOD CELL CT 4.46 /CUMM (4.20-5.40); WHITE BLOOD CELL COUNT 7.6 /CUMM (4.8-10.8)
[2016-11-28 06:36] VITALS: BP 137/65
== END 2016-11-28 06:46 ==
LOC: ERH 16:27
PROVIDERS: Physician Assistant Medical
DX: F10.10 Alcohol abuse, uncomplicated (principal); R45.1 Restlessness and agitation
CPT/HCPCS: 80307; 96372; 99291; G0480; J1200; J1630

== ENCOUNTER → 2018-03-27 | Day surgery (SDC) | payer OTHER ==
[~2018-03-27] VITALS: Ht 170.2 cm; Wt 74.8 kg
[~2018-03-27] MED LIST changes: +MULTIPLE VITAM1 EAC2 PO; -MULTIVITAMIN1 TAB PO
--- NOTE | 2018-03-27 14:45 | Operative Report ---
Operative/Inv Procedure Report Surgery Date: 03/27/18 Name of Procedure: cystocele repair with mesh, urethral sling, cystoscopy and rectocele repair with mesh Pre-Operative Diagnosis: cystocele grade 3, rectocele grade 3, stress incontinence Post-Operative Diagnosis: same Estimated Blood Loss: 200cc Surgeon/Eyelet Machine Operator: Kiki Lo MD Anesthesia: laryngeal mask airway Implants: vaginal mesh Complications: none Condition: stable Operative Indication: cystocele grade 3, rectocele grade 3, stress incontinence Operative/Procedure Note Note: 57-year-old female with a history of pelvic organ prolapse and it was very bothersome. She has had previous repair in the past. She was given the risks benefits and alternatives of the prolapse repair with mesh in the anterior and posterior boston and urethral sling for stress incontinence. Literature was given and all questions were answered in the office as well as in the holding area with family present. Patient was taken to the operating room and placed on the operating table in the supine position. LMA was placed by anesthesia without difficulty. IV antibiotics were infused. She was placed in the dorsolithotomy position and prepped and draped in a standard sterile fashion after shaving the genitalia. A Rickreall retractor was placed with 6 stay hooks. Pink catheter was placed and 10 cc was placed into the balloon port. One Percent lidocaine with epinephrine was infiltrated into the anterior vaginal wall from the bladder neck to the apex of the vagina. An incision was made in the same distance and the vaginal flaps were created taking care not to injure the bladder. Once the entire cystocele was dissected free the Coloplast Restoril mesh was then placed with 4 Prolene sutures with the thin Capio device. One in the sacrospinous ligament on the right side followed by the left side and one each in the arcus tendineus at the level of the bladder neck on the right and left side. They were each in excellent placement and the mesh was secured and tied down after 2-0 Vicryl sutures were placed at the bladder neck and at the apex. This nicely reduce the cystocele and the enterocele. There area was copiously irrigated with bacitracin irrigation. Methylene blue had been given at the start of the case to check for patency of the ureteral orifices at a later time. The ureteral orifices were able to be identified and efflux was seen from both ureters with cystoscopy. The anterior vaginal wall was then closed with 2-0 Vicryl running suture locking every third suture. Attention was then turned to the sling portion of the case. One percent lidocaine with epinephrine was infiltrated into the anterior vaginal wall beneath the urethra. Incision was made 2 inches beneath the urethra. Vaginal flaps are created taking care not to injure the urethra. The UltraSling kit was then opened and the trochars provided was used to place the urethral sling in a flat orientation. The sling was seen to be in good position and the tightening Prolene suture was cut after it was tightened. The area was copious irrigated with bacitracin irrigation. The anterior vaginal wall was then closed with a running locking 3-0 Vicryl suture. Attention was then turned to the rectocele portion of the case. Rickreall retractor was replaced to allow for excellent visualization of the vaginal vault. Allis clamps are placed at the posterior fourchette. 1% lidocaine with epinephrine was infiltrated into the posterior vaginal wall. Incision was made at the posterior fourchette in a lateral fashion. Metzenbaum scissors was then used to carefully dissect the rectocele from the posterior vaginal wall. The incision was carried all the way up to the cervical stump. The posterior wall was then dissected free from the rectocele taking care not to injure the rectum. A cell mesh had been soaking for 20 minutes prior to this and this was then used for this repair. 2-0 Vicryl interrupted sutures were placed along the entire length of the rectocele within strong fascial tissue on the right and left side. These were tied down until a cell mesh was placed between the sutures and secured proximally and distally. The sutures were then sequentially tied down from proximal to distal orientation. This nicely reduced the rectocele. Area was grossly irrigated bacitracin irrigation and then the posterior wall was closed with interrupted 2-0 Vicryl sutures. 2 inch vaginal packing impregnated with bacitracin ointment was placed in the vaginal vault. Sponge and needle count were correct at the end of the case. Patient tolerated the procedure well. Findings: no mesh in bladder, urethra or vaginal fornices excellent bilateral ureteral efflux from both UO's olive tip stent placed bilaterally without issue Discharge Disposition: PACU
== END ==
LOC: STS 02:16
DX: N39.3 Stress incontinence (female) (male) (principal); N81.10 Cystocele, unspecified; N81.6 Rectocele; N81.4 Uterovaginal prolapse, unspecified; K21.9 Gastro-esophageal reflux disease without esophagitis; M19.90 Unspecified osteoarthritis, unspecified site; I10 Essential (primary) hypertension; I34.1 Nonrheumatic mitral (valve) prolapse
CPT/HCPCS: C1771; C1781; J0131; J0690; J2250; J2405; J3490; Q9968